=== PATIENT | male | born 1965 | race Caucasian/White ===

== ENCOUNTER 2016-12-10 10:09 | Emergency (ER) | payer OTHER, BC ==
[~2016-12-10] VITALS: Ht 172.7 cm; Wt 59.9 kg
== END 2016-12-10 11:39 | disposition short-term general hospital (02) ==
LOC: ER 10:09
PROC: 0HQGXZZ Repair Left Hand Skin, External Approach (ICD-10-PCS; principal; 2016-12-10)
DX: S61.012A Laceration without foreign body of left thumb without damage to nail, initial encounter (principal); Z23 Encounter for immunization; W45.8XXA Other foreign body or object entering through skin, initial encounter; Y99.8 Other external cause status